=== PATIENT | female | born 1980 | race Caucasian/White ===

== ENCOUNTER 2018-07-14 02:31 | Emergency (ER) | payer SELFPAY ==
[~2018-07-14] VITALS: Ht 175.3 cm; Wt 84.1 kg
[2018-07-14 02:33] VITALS: BP 133/87
[2018-07-14] MEDS ORDERED: LIDOCAINE 1%-EPI 1:100K, 20ML ONE (02:53)
[2018-07-14] MEDS ORDERED: LIDOCAINE 1%-EPI 1:100K, 20ML SQ ONE (03:00)
[2018-07-14] MEDS ORDERED: BACITRACIN ZINC OINT 500U/GM, 0.9 GM ONE (03:29)
== END 2018-07-14 03:46 | disposition home or self-care (01) ==
LOC: ED 03:04
DX: L02.414 Cutaneous abscess of left upper limb (principal); F17.210 Nicotine dependence, cigarettes, uncomplicated; F15.10 Other stimulant abuse, uncomplicated
CPT/HCPCS: 10060; 99283